=== PATIENT | male | born 1950 | race Caucasian/White ===

== ENCOUNTER 2018-12-06 14:27 | Emergency (ER) | payer MEDICARE ==
[~2018-12-06] VITALS: Ht 167.6 cm; Wt 90.0 kg
[2018-12-06 14:33] VITALS: BP 145/72
[2018-12-06] MEDS ORDERED: BACITRACIN ZINC OINT UDPKT TOP ONE (15:15)
[2018-12-06] MEDS ORDERED: LIDOCAINE HCL/PF 1% 10 MG/ML 5ML VIAL IJ ONE (15:15)
== END 2018-12-06 16:03 | disposition home or self-care (01) ==
LOC: ER 14:27
DX: L60.0 Ingrowing nail (principal); M79.674 Pain in right toe(s)
CPT/HCPCS: 11730; 99283; J3490